=== PATIENT | female | born 2000 | race Caucasian/White ===

== ENCOUNTER 2025-07-29 12:53 | Emergency (ER) | payer OTHER, SELFPAY ==
--- NOTE | ~2025-07-29 | XR_ITS ---
CLINICAL HISTORY: pain s p bracing fall 3 views left elbow Comparison: None Findings: No fractures, subluxations or dislocations. Displaced anterior and posterior fat pads No periostitis Bone mineralization and soft tissues within normal limits. No radiopaque foreign body. Impression: 1. No acute fractures or dislocations. Joint effusion present This document has been electronically signed by: Jamil Spicer MD on 07/29/2025 13:59:04
--- NOTE | ~2025-07-29 | XR_ITS ---
CLINICAL HISTORY: fall 2 views left forearm Comparison: None Findings: No fracture or dislocation. Joint effusion of the elbow. No periostitis or bony destruction. Normal bone mineraliztion and soft tissues. No radiopaque foreign bodies. Impression: 1. No fractures. No dislocation. Joint effusion of the elbow. This document has been electronically signed by: Jamil Spicer MD on 07/29/2025 13:56:24
[2025-07-29 12:55] VITALS: BP 148/93; PULSE 69; RESP 16; TEMP 36.3; O2SAT 100; BMI 38.6
--- NOTE | 2025-07-29 12:55 | ED_ITS ---
HPI - Extremity Injury (Upper) General Chief Complaint: Extremity Problem Stated Complaint: arm inj Time Seen by Provider: 07/29/25 14:11 Source: patient, RN notes reviewed and old records reviewed Mode of arrival: ambulatory History of Present Illness ED Provider: Vivian Torres PA-C HPI narrative: 25-year-old female with no significant past medical history presenting to the ED complaining of left elbow pain radiating to left forearm s/p attempting to brace/catch herself when doing the splits last night. Reports associated paresthesias to left fingers. Denies injury to the area, head tremor/LOC Related Data Allergies Allergy/AdvReac Type Severity Reaction Status Date / Time No Known Allergies Allergy Verified 07/29/25 12:56 Review of Systems Review of Systems: Yes all other systems are reviewed and are negative Constitutional: Constitutional: Reports as per [facility] Past Medical History Attestation statement: The following information was validated with the patient. Source: old records reviewed Social History Social History Advance Directives: No Advance Directives Information Provided: Yes Physical Exam Vital Signs: Vital Signs: Last Vital Signs Temp 97.3 F 07/29/25 12:55 Pulse 69 07/29/25 12:55 Resp 16 07/29/25 12:55 BP 148/93 H 07/29/25 12:55 Pulse Ox 100 07/29/25 12:55 O2 Del Method Room Air 07/29/25 12:55 BMI result Body Mass Index 38.6 Const: General: cooperative, healthy appearing and no acute distress Orientation/consciousness: patient oriented x3 Limitations: no limitations HEENT: Head: Yes normal to inspection and Yes atraumatic Ears: hearing grossly normal bilaterally General nose exam: Normal external nose present Face and sinus: Yes normal facial exam Eyes: General: appearance normal, both eyes and all related structures EOM: EOMs intact bilaterally Neck: Neck: Yes normal visual inspection and Yes no meningeal signs Resp: Effort & Inspection: normal respiratory effort and no respiratory distress Cardio: Rate: regular rate Skin: Rashes: no rashes Wounds: no wounds Neuro: General: patient oriented x3, tone normal and no meningeal signs Cranial nerves: Yes CN's II-XII intact bilaterally Gait exam (Neuro): Normal gait present Extrem: Other: LUE without appreciable deformity. + mild tenderness to palpation to left elbow. FROM intact with some discomfort. forearm & wrist/hand nontender to palpation. No snuffbox ttp. NV intact. Pronation/supination intact Course Course Course Narrative: This is a Rapid Medical Exam performed in triage by Vivian Torres PA-C. Full HPI, ROS and PE to be performed by primary ED provider. 25 yo F presenting to the ED c/o LUE pain s/p doing the splits last night & trying to catch her fall. PE: Left upper extremity without appreciable deformity. Elbow mildly tender to palpation. Full range of motion intact. Wrist nontender. Neurovascularly intact Plan: XR XR elbow LT min 3V Impression: 1. No acute fractures or dislocations. Joint effusion present XR forearm LT 2V Impression: 1. No fractures. No dislocation. Joint effusion of the elbow. > small sail sign appreciated on x-ray on my interpretation. Will place patient in sling as precaution. Recommended close orthopedic follow-up. She verbalized understanding Results discussed with patient including worrisome signs and symptoms and strict return precautions, and when to return to the emergency department. They verbalized understanding and feel safe for discharge at this time. Medical Decision Making Medical Decision Making MDM Narrative: 25-year-old female with no significant past medical history presenting to the ED complaining of left elbow pain radiating to left forearm s/p attempting to brace/catch herself when doing the splits last night. On exam VSS, NAD, nontoxic appearing, PE as above. Concern for fx vs sprain. No evidence of septic joint/arthritis Plan: X-ray Please refer to course for remaining clinical decision making, interpretation of labs/imaging results, and discussions with consultants and/or family members. Differential Diagnosis Differential Diagnoses: The differential diagnosis associated with the presentation includes As above Independent Interpretation I performed an independent interpretation of an: Plain X-Ray (My interpretation: Small sail sign appreciated. No appreciable fracture visualized.) Radiology Impression Discussion of test interpretation with radiology: I have reviewed the radiologist's reading. External Record Review External record reviewed: Inpatient record, Office record, Outpatient record, Prior outpatient labs, Prior outpatient radiology, Primary care record and Outside ED record Tests considered The following testing was considered but not selected: As above Prescription Management I considered prescription management with: Pain Medication Social Determinants Patient?s care significantly limited by Social Determinants of Health including: Other Social Determinant of Health Discharge Plan Discharge Clinical Impression: Effusion of elbow joint, left Patient Disposition: Home, Self-Care Instructions: Swollen Joint (ED) Additional Instructions: Your x-rays show a joint effusion, no fracture, however there could possibly be a small fracture that is nondisplaced and missed on x-ray Please wear sling, you may take off to shower Please range of motion your shoulder for 10 minutes every hour so you do not develop frozen shoulder You need to follow up with the talent development specialist for this possible fracture If your pain persists or worsens becomes unbearable return to the ED Referrals: Terri James MD [Primary Care Provider, Family Practice] - 1 week Stand Alone Forms: Work/School Release Print Language: Upper Sorbian
--- OUTSIDE RECORDS SUMMARY | 2025-07-29 14:31 | XMS_ITS | Encounter Summary ---
Author Organization [facility] Address [address] [place] [address] Phone Care Team Providers Care General Road Foreman Name Role Phone Provider, Bobby DIOR Primary Care Provider [phone] Encounter Details Date Type Department Care Team (Late st Contact Info) Description 05/16/2012 Documentation [facility] [place] Family Medicine [address] [place] [address] Family Medicine, Physician [address] [place] [address] Social History Tobacco Use Types Packs/Day Years Used Date Smoking Tobacco: Never Assessed Comments Unknown Sex and Gender Information Value Date Recorded Sex Assigned at Female 06/05/2020 2:21 PM EDT Legal Sex Female 4:40 PM EDT Gender Identity Female 06/05/2020 2:21 PM EDT Sexual Orientation Straight 06/05/2020 2: 21 PM EDT documented as of this encounter Plan of Treatment Not on file documented as of this encounter Visit Diagnoses Not on filedocumented in this encounter Care Teams General Road Foreman Relationship Specialty Start Date End Date Provider, MD Bobby [address] [place] [address] PCP - General Pediatrics 02/25/22 01/17/23 documented as of this encounter
--- OUTSIDE RECORDS SUMMARY | 2025-07-29 14:31 | XMS_ITS | Encounter Summary ---
Author Organization [facility] Address [address] [place] [phone] Phone Care Team Providers Care Front Maker Name Role Phone Provider, Bobby DIOR Primary Care Provider [phone] Encounter Details Date Type Department Care Team (Late st Contact Info) Description 05/13/2017 Conversion Encounter [facility] [address] [place], [place] [id number] Social History Tobacco Use Types Packs/Day Years Used Date Smoking Tobacco: Never Comments:Never smoker Comments Unknown Sex and Gender Information Value [...] on filedocumented in this encounter Care Teams Front Maker Relationship Specialty Start Date End Date Provider, MD [address] [place] [phone] PCP - General Pediatrics 02/25/22 01/17/23 documented as of this encounter
--- OUTSIDE RECORDS SUMMARY | 2025-07-29 14:31 | XMS_ITS | Encounter Summary ---
Author Organization [facility] Address [address] [place] [phone] Phone Care Team Providers Care Security Sales Consultant Name Role Phone Provider, Bobby DIOR Primary Care Provider [phone] Encounter Details Date Type Department Care Team (Late st Contact Info) Description 01/24/2014 Documentation [facility] [place] Family Medicine [address] [place] [address] Family Medicine, Physician [address] [place] [address] Social History Tobacco Use Types [...] on filedocumented in this encounter Care Teams Security Sales Consultant Relationship Specialty Start Date End Date Provider, MD Bobby [address] [place] [address] PCP - General Pediatrics 02/25/22 01/17/23 documented as of this encounter
--- OUTSIDE RECORDS SUMMARY | 2025-07-29 14:31 | XMS_ITS | Encounter Summary ---
Author Organization [facility] Address [address] [place] [phone] Phone Care Team Providers Care Electrocardiographic Technician Name Role Phone Provider, Bobby DIOR Primary Care Provider [phone] Encounter Details Date Type Department Care Team (Late st Contact Info) Description 01/24/2014 Documentation [facility] [place] Family Medicine [address] [place] [address] Family Medicine, Physician [address] [place] [address] Social History Tobacco Use Types [...] on filedocumented in this encounter Care Teams Electrocardiographic Technician Relationship Specialty Start Date End Date Provider, MD [address] [place] [address] PCP - General Pediatrics 02/25/22 01/17/23 documented as of this encounter
--- OUTSIDE RECORDS SUMMARY | 2025-07-29 14:31 | XMS_ITS | Encounter Summary ---
Author Organization [facility] Address [address] [place] [address] Phone Care Team Providers Care Refractory Manager Name Role Phone Provider, Bobby DIOR Primary Care Provider [phone] Encounter Details Date Type Department Care Team (Late st Contact Info) Description 02/23/2014 Documentation [facility] [place] Family Medicine [address] [place] [address] Family Medicine, Physician [address] [place] [address] Social History Tobacco Use Types [...] on filedocumented in this encounter Care Teams Refractory Manager Relationship Specialty Start Date End Date Provider, MD [address] [place] [address] PCP - General Pediatrics 02/25/22 01/17/23 documented as of this encounter
--- OUTSIDE RECORDS SUMMARY | 2025-07-29 14:31 | XMS_ITS | Clinical Summary ---
Author Organization [facility] Address [address] [place] [address] Phone Care Team Providers Care Cordwood Cutter Name Role Phone Unavailable Primary Care Provider Unavailabl e Allergies No known active allergies Medications norelgestromin-eth inyl estradiol (ORTHO EVRA) 150-35 MCG/24HRIndication s:Encounter for initial prescription of transdermal patch hormonal contraceptive device Apply 1 patch each week for 3 weeks, then remove for 1 week. 3 patch 2 8 Active Active Problems Problem Noted Date Diagnosed Date Immunization not carried out because of patient refusal 06/05/2020 Overview (06/05/2020): Men B refused 05/2020 Flu vaccine not available today. Assessment & Plan (06/05/2020 2:49 PM EDT): Men B refused 05/2020 Flu vaccine not available today. BMI (body mass index), pedia tric 95-99% for age, obese child structured weight management/multidisciplinary intervention category 04/13/2018 Encounter for surveillance o f transdermal patch hormonal contraceptive device 04/13/2018 Overview (06/05/2020): Started 03/2018 on patch. Has been getting it refilled by clinic at school Assessment & Plan (06/05/2020 2:50 PM EDT): Doing well on the patch. No concerns Has been getting it refilled by clinic at school Wears glasses 04/13/2018 Resolved Problems Problem Noted Date Diagnosed Date Resolved Date Mood disorder 04/13/2018 06/05/2020 Overview (04/13/2018): Mild mood issues. Boyfriend just broke up with her, looking for a job. Assessment & Plan (04/13/2018 10:14 AM EDT): Recently feeling a bit down and mildly anxious. Recommend starting therapy and follow up with me at contraception follow up. Sooner for any worsening. Immunizations Immunization Administration Dates Next Due DTaP 5 07/28/2004, 2,2000, 001,2000 HPV Vaccine 9 Valent 04/13/2018 HPV, Quadrivalent 02/22/2014,01/23/2014 Hep A, ped/adol 04/13/2018,01/23/2014 Hep B, ped/adol 2000,2000,2000 Hib (PRP-T) 10/05/2001, 1,2000, 000 IPV 07/28/2004, 2,2000, 000 MMR 07/28/2004,08/03/2001 Meningococcal Conj (Menactra) MCV4P 04/13/2018,0 05/13/2012 Pneumococcal Conjugate 2000,2000, Tdap 05/13/2012 Varicella 01/19/2008,08/03/2001 Family History Relation Name Status Comments Father Alive Father: unknown history Mother Rhonda Alive Mother: Obesity Social History Tobacco Use Types Packs/Day Years Used Date Smoking Tobacco: Never Smokeless Tobacco: Never Comments:Never smoker Alcohol Use Standard Drinks/Week Comments No 0 (1 standard drink = 0.6 oz pur e alcohol) Hunger/Food Answer Date Recorded In the last 12 months, did y ou or your family ever eat less than you felt you should because there wasn't enough money for food? No 06/05/2020 Stable Housing Answer Date Recorded Are you worried that in the next 2 months you may not have stable housing? No 06/05/2020 Transportation Concerns Answer Date Rec orded In the last 12 months, have you or your family ever had to go without healthcare because you didn't have a way to get there? No 06/05/2020 Hazards in Home Answer Date Recorded Think about the place you li ve. Do you have problems with any of the following? Pests (mice or roaches), mold, no/not working smoke detectors, water leaks, no window guards. No 2019 Financing Utilities Answer Date Recorde d In the last 12 months, has t he electric, gas, oil, or water company threatened to shut off your services in your home? No 06/05/2020 Safety at Home Answer Date Recorded Are you or your family worried about feeling saf e in your home? No 06/05/2020 Outside Support Answer Date Recorded Do you feel that you need mo re support from other people or programs to help you care for yourself or your family? No 06/05/2020 Understanding Health Concerns Answer Da te Recorded Do you need help understandi ng your or your child's healthcare needs (diagnosis, medications, plan, etc.)? No 06/05/2020 Financing Health Concerns Answer Date R ecorded In the last 12 months, was t here a time when your child needed to see a doctor or get medications or supplies but could not because of cost? No 06/05/2020 Missing School or Work Answer Date Alexis rded Did you or your child miss s chool or work because of a health problem that could have been avoided? No 06/05/2020 Comments Unknown Sex and Gender Information Value Date Recorded Sex Assigned at Female 06/05/2020 2:21 PM EDT Legal Sex Female 4:40 PM EDT Gender Identity Female 06/05/2020 2:21 PM EDT Sexual Orientation Straight 06/05/2020 2: 21 PM EDT Last Filed Vital Signs Vital Sign Reading Time Taken Comments Blood Pressure 126/72 06/05/2020 2:06 PM EDT Pulse 79 06/05/2020 2:06 PM EDT Temperature 37 C (98.6 F) 06/05/2020 2:06 PM EDT Respiratory Rate - - Oxygen Saturation - - Inhaled Oxygen Concentration - - Weight 89.4 kg (197 lb) 06/05/2020 2:06 PM EDT Height 172.1 cm (5' 7.75 ) 06/05/2020 2:06 PM ED T Body Mass Index 30.18 06/05/2020 2:06 PM EDT Plan of Treatment Health Maintenance Due Date Last Done Comments DTaP,Tdap,and Td Vaccines (7 - Td or Tdap) 05/13/2022 05/13/2012, 07/28/2004, 12/21/2001, Additional history exists Influenza Vaccines (#1) 2025 COVID-19 Vaccine ( season) 2025 09/18/2021, 01/18/2021, 12/25/2020 Hepatitis B Vaccines Completed 2000, 2000, 2000 Pneumococcal Vaccine Aged Out 2000, 2000, 2000 No longer eligible based on patient's age to complete this topic HIB Vaccines Completed 10/05/2001, 12/2000, 2000, Additional history exists IPV Vaccines Completed 07/28/2004, 05/2002, 2000, Additional history exists MMR Vaccines Completed 07/28/2004, 08/03/2001 Varicella Vaccines Completed 01/19/2008, 08/03/2001 HPV Vaccines Completed 04/13/2018, 01/26, 01/23/2014 Hepatitis A Vaccines Completed 04/13/2018, 01/24/20 14 Meningococcal Vaccine Completed 04/13/2018, 012 Men B Vaccine Aged Out No longer elig ible based on patient's age to complete this topic Procedures * Due to [place] law, this organization might not be sharing sensitive test results. Procedure Name Priority Date/Time Associated Diagnosis Comments CHLAMYDIA AND GONORRHEA, AMPLIFIED Routine 06/05/2020 2:32 PM EDT Special screening for bacterial and spirochetal disease from Last 3 Months or Most Recently Relevant to Health Maintenance Results * Due to [place] law, this organization might not be sharing sensitive test results. * Chlamydia and Gonorrhoea, Amplified (06/05/2020 2:32 PM EDT) Chlamydia Trachomatis, DNA Probe NOT DETECTED (NEG) [facility] Comment:Reference range: NOT DETECTED URINE GC AMP PROBE NOT DETECTED (NEG) [facility] Comment: Reference range: NOT DETECTED (NOTE) The analytical performance characteristics of this assay, when used to test SurePath(TM) specimens have been determined by [employer]. The modifications have not been cleared or approved by the FDA. This assay has been validated pursuant to the CLIA regulations and is used for clinical purposes. = For additional information, please refer to https://education.INMAN.KidBook/faq/YUP262 (This link is being provided for information/ educational purposes only.) = Test Performed by: [facility], [address] [place] [address]. [id number]. Online Communications Specialist: Isac Carlson MD. Testing performed or reported by [facility], a Service of [facility], [address] [place] [id number] Joseph Rand MD, Scientific Programmer Urine 06/05/2020 2:32 PM EDT 06/06/2020 1:25 AM EDT Candy Riley MD LAB MICROBIOLOGY - GENERAL O RDERABLES Final Result [facility] from Last 3 Months or Most Recently Relevant to Health Maintenance
--- OUTSIDE RECORDS SUMMARY | 2025-07-29 14:31 | XMS_ITS | Encounter Summary ---
Author Organization [facility] Address [address] [place] [phone] Phone Care Team Providers Care Primer Waterproofing Machine Operator Name Role Phone Provider, Bobby DIOR Primary Care Provider [phone] Encounter Details Date Type Department Care Team (Late st Contact Info) Description 05/17/2012 Documentation [facility] [place] [address] [place] [address] Family Medicine, Physician [address] [place] [address] Social History Tobacco Use Types [...] on filedocumented in this encounter Care Teams Primer Waterproofing Machine Operator Relationship Specialty Start Date End Date Provider, MD Bobby [address] [place] [address] PCP - General Pediatrics 02/25/22 01/17/23 documented as of this encounter
--- OUTSIDE RECORDS SUMMARY | 2025-07-29 14:31 | XMS_ITS | Clinical Summary ---
Author Organization [facility] [address] [place] [address] Address [address], [place] Phone Care Team Providers Care Vocational Teacher Name Role Phone Terri James MD Primary Care Pr ovider Allergies No known active allergies Medications multivit-minerals/ folic acid (WOMEN'S MULTIVITAMIN GUMMIES ORAL) Take by mouth. Active Active Problems Problem Noted Date Diagnosed Date Migraine without aura and wi thout status migrainosus, not intractable 05/14/2025 Assessment & Plan (05/14/2025 3:48 PM EDT): We discussed the option for topiramate for headache prophylaxis including the side effects. She is currently not ready to start medication and will let me know if she decides to do so in the future. Advised she can use [id number] Excedrin as needed or continue with the aspirin as needed Mild episode of recurrent ma guillaume depressive disorder (CMS/HCC V24) 05/14/2025 Assessment & Plan (05/14/2025 3:48 PM EDT): No SI. She will continue with biweekly therapy. Does not think she needs medications for now Easy bruising 05/14/2025 Assessment & Plan (05/14/2025 3:48 PM EDT): Will check CBC and VWF activity Orders: Von Willebrand factor activity; Future Obesity (BMI 35.0-39.9 without comorbidity) 04/27 Assessment & Plan (05/14/2025 3:48 PM EDT): Lifestyle counseling provided. She is currently not interested in weight loss medications. She is interested in nutrition evaluation and is referred. Will check labs Orders: Ambulatory referral to Nutrition Services; Future Lipid panel with reflex to direct LDL; Future CBC and differential; Future Comprehensive metabolic panel; Future Thyroid stimulating hormone with reflex to free t4 and free t3; Future Hemoglobin A1c; Future Encounters Date Type Department Care Team Description 05/14/2025 3:00 PM EDT Office Visit Adult Medicine [address] [phone] Terri James MD Annual physical exam (Primary Dx); Obesity (BMI 35.0-39.9 without comorbidity); Cervical cancer screening; Easy bruising; Migraine without aura and without status migrainosus, not intractable; Mild episode of recurrent major depressive disorder (CMS/HCC V24) from Last 3 Months Immunizations Immunization Administration Dates Next Due Moderna SARS-CoV-2 COVID-19, mRNA, LNP-S, preservative free 09/18/2021 Pfizer SARS-CoV-2 COVID-19, mRNA, LNP-S, preservative free 01/18/2021,12/25/2020 Surgical History Surgery Date Site/Laterality Comments NO PAST SURGERIES PROCEDURE: DENIES PREVIOUS SURGERY Family History Medical History Relation Name Comments Diabetes Maternal Grandfather Lawrence Thyroid disease Maternal Grandmother No Known Problems Mother Breast cancer Neg Hx Colon cancer Neg Hx Ovarian cancer Neg Hx Relation Name Status Comments Father Unknown Maternal Grandfather Lawrence Alive Maternal Grandmother Alive Mother Alive Paternal Grandfather Unknown Paternal Grandmother Unknown Social History Tobacco Use Types Packs/Day Years Used Date Smoking Tobacco: Never Smokeless Tobacco: Never Tobacco Cessation:Counseling Given: Not Answered Alcohol Use Standard Drinks/Week Comments Yes 0 (1 standard drink = 0.6 oz pur e alcohol) 6 Housing Instability Answer Date Recorde d Are you worried that in the next 2 months you may not have stable housing? No 05/08/2025 Food Access & Nutrition Answer Date Rec orded Do you have access to a vari ety of food including fruits and vegetables? Yes 05/08/2025 Access to Healthcare Answer Date Record ed Within the last 3 months, ho w many times did you visit the emergency department for your medical care? 0 05/08/2025 Health Literacy Answer Date Recorded How often do you need to hav e someone help you when you read instructions, pamphlets, or other written material from your doctor or pharmacy? Never 05/08/2025 Caregiver: How often do you need to have someone help you when you read instructions, pamphlets, or other written material from your doctor or pharmacy? Not on file 05/08/2025 Financial Risk Answer Date Recorded How hard is it for you to pa y for the very basics like food, housing, medical care, and air conditioning / heating? Not very hard 05/08/2025 Transportation Answer Date Recorded Has the lack of transportati on kept you from meetings, work, or from getting things needed for daily living? No Has the lack of transportati on kept you from medical appointments or from getting medications? No 05/08/2025 Social Isolation Answer Date Recorded How often do you feel lonely or isolated from those around you? Sometimes 05/08/2025 Food Risk Answer Date Recorded Within the past 12 months we worried whether our food would run out before we got money to buy more. Never true 05/08/2025 Within the past 12 months th e food we bought just didn't last and we didn't have money to get more. Never true 05/08/2025 Dependent Care Answer Date Recorded Do you need help finding or paying for care for your loved ones. For example, early childhood associate or elderly care for an older adult? No 05/08/2025 Education Answer Date Recorded Do you think completing more education or training, like finishing a GED, going to college, or learning a trade, would be helpful for you? No 05/08/2025 Employment and Income Answer Date Recor ded During the last four weeks, have you been actively looking for work? No 05/08/2025 Living Situation Answer Date Recorded What is your living situation? Unrecognized valu e 05/08/2025 Comments Unknown Sex and Gender Information Value Date Recorded Sex Assigned at Not on file Legal Sex Female 11:40 AM EDT Gender Identity Not on file Sexual Orientation Not on file Obstetrics History Last Filed Vital Signs Vital Sign Reading Time Taken Comments Blood Pressure 113/77 05/14/2025 2:48 PM EDT Pulse 76 05/14/2025 2:48 PM EDT Temperature 36.8 C (98.2 F) 05/14/2025 2:48 PM EDT Respiratory Rate 18 05/14/2025 2:48 PM EDT Oxygen Saturation - - Inhaled Oxygen Concentration - - Weight 111 kg (245 lb) 05/14/2025 2:48 PM EDT Height 172.7 cm (5' 8 ) 05/14/2025 2:48 PM EDT Body Mass Index 37.25 05/14/2025 2:48 PM EDT Plan of Treatment Upcoming Encounters Date Type Department Care Team (Late st Contact Info) Description 05/15/2026 8:00 AM EDT Office Visit Adult Medicine [address] [phone] Terri James MD [address] [place] [phone] Health Maintenance Due Date Last Done Comments Cervical Cancer Screening: Pap Smear 2021 Influenza Vaccine (#1) 2025 Social Influencers of Health Screening 05/08/2026 05/08/2025 Cholesterol Screening (Lipid Panel) 05/17/2030 05/17/2025, 05/12/2024, 05/12/2024 RSV Immunization Adult Patients (1 - 1-dose 75+ series) 2075 Hepatitis B Vaccines Completed 2000, 2000, 2000 Pneumococcal Vaccine: Pediatrics (0 to 5 Years) and At-Risk Patients (6 to 49 Years) Aged Out 2000, 2000, 2000 No longer eligible based on patient's age to complete this topic HIB Vaccines Completed 10/05/2001, 12/2000, 2000, Additional history exists IPV Vaccines Completed 07/28/2004, 05/2002, 2000, Additional history exists MMR Vaccines Completed 07/28/2004, 08/03/2001 Varicella Vaccines Completed 01/19/2008, 08/03/2001 DTaP,Tdap,and Td Vaccines Discontinued 2011, 07/28/2004, 12/21/2001, Additional history exists HPV Vaccines Completed 04/13/2018, 01/26, 01/23/2014 Hepatitis A Vaccines Completed 04/13/2018, 01/24/20 14 Meningococcal ACWY Vaccine Completed 04/13/2018, COVID-19 Vaccine Discontinued 09/18/2021, , 12/25/2020 Gonorrhea/Chlamydia Screening Discontinued 05/12/2024 HIV Screening Completed 05/12/2024, 05/12/2024 Hepatitis C Screening Completed 05/12/2024 Depression Screening Completed 05/08/2025 Meningococcal B Vaccine Aged Out No l onger eligible based on patient's age to complete this topic RSV Immunization Patients Under 20 months Aged Out No longer eligible based on patient's age to complete this topic Procedures Procedure Name Priority Date/Time Associated Diagnosis Comments HEMOGLOBIN ELECTROPHORESIS Routine 06/01/2025 3:30 PM EDT Elevated red blood cell count IRON AND TIBC Routine 06/01/2025 3:30 PM EDT Elevated red blood cell count FERRITIN Routine 06/01/2025 3:30 PM EDT Elevated red blood cell count CBC WITH AUTO DIFFERENTIAL Routine 05/17/2025 9:54 AM EDT Obesity (BMI 35.0-39.9 without comorbidity) LIPID PANEL WITH REFLEX TO DIRECT LDL Routine 05/17/2025 9:54 AM EDT Obesity (BMI 35.0-39.9 without comorbidity) CBC AND DIFFERENTIAL Routine 05/17/2025 9:54 AM EDT Obesity (BMI 35.0-39.9 without comorbidity) COMPREHENSIVE METABOLIC PANEL Routine 05/17/2025 9:54 AM EDT Obesity (BMI 35.0-39.9 without comorbidity) THYROID STIMULATING HORMONE WITH REFLEX TO FREE T4 AND FREE T3 Routine 05/17/2025 9:54 AM EDT Obesity (BMI 35.0-39.9 without comorbidity) HEMOGLOBIN A1C Routine 05/17/2025 9:54 AM EDT Obesity (BMI 35.0-39.9 without comorbidity) VON WILLEBRAND FACTOR ACTIVITY Routine 05/17/2025 9:54 AM EDT Easy bruising HM HEPATITIS C SCREENING Routine 05/12/2024 HM HIV SCREENING Routine 05/12/2024 HM GONORRHEA/CHLAMYDIA SCRREENING Routine 05/12/2024 from Last 3 Months or Most Recently Relevant to Health Maintenance Results * Hemoglobin electrophoresis (06/01/2025 3:30 PM EDT) Hemoglobin A1 97.6 96.5 - 97.8 % 06/07/2025 2:13 PM EDT [facility] Hemoglobin A2 2.4 2.2 - 3.2 % 06/07/2025 2:13 PM EDT [facility] Hemoglobin F 0.0 <2.0 % 06/07/2025 2:13 PM EDT [facility] Hemoglobin S 0.0 0.0 % 06/07/2025 2:13 PM EDT [facility] Hemoglobin C 0.0 0.0 % 06/07/2025 2:13 PM EDT [facility] Interpretation See Below 06/07/2025 2:13 PM EDT [facility] Comment: No abnormal hemoglobin variants seen on hemoglobin electrophoresis. Test performed at [facility], [facility] [place] [address] [place] [address] Rosemarie Webster MD, PhD - Service Delivery Director Blood Venous blood specimen / Unknown Venipuncture / Unknown 06/01/2025 3:30 PM EDT 06/01/2025 3:30 PM EDT us Terri James MD LAB BLOOD ORDERA BLES Final Result [facility] [address] [place] [address] * (ABNORMAL) Iron and TIBC (06/01/2025 3:30 PM EDT) Iron 56 40 - 150 mcg/dL LAB CHEMISTRY METHOD 06/01/2025 9:24 PM EDT [facility] TIBC 427 250 - 450 mcg/dL LAB CHEMISTRY METHOD 06/01/2025 9:24 PM EDT [facility] Iron Saturation 13(L) 15 - 50 % LAB CHEMISTRY METHOD 06/01/2025 9:24 PM EDT [facility] Blood Venous blood specimen / Unknown Venipuncture / Unknown 06/01/2025 3:30 PM EDT 06/01/2025 3:30 PM EDT Terri James MD LAB BLOOD ORDERA BLES Final Result Performing Organization Address [facility]/ZIP Co de Phone Number [facility] [address] [place] [address], [place] [phone] * Ferritin (06/01/2025 3:30 PM EDT) Ferritin 20 8 - 252 ng/mL LAB CHEMISTRY METHOD 06/01/2025 9:25 PM EDT [facility] Blood Venous blood specimen / Unknown Venipuncture / Unknown 06/01/2025 3:30 PM EDT 06/01/2025 3:30 PM EDT Terri James MD LAB BLOOD ORDERA BLES Final Result [facility] [address] [place] [address], [place] [phone] * Thyroid stimulating hormone with reflex to free t4 and free t3 (05/17/2025 9:54 AM EDT) [facility] TSH 1.57 0.40 - 4.00 mcIU/mL LAB CHEMISTRY METHOD 05/17/2025 2:02 PM EDT [facility] Blood Venous blood specimen / Unknown Venipuncture / Unknown 05/17/2025 9:54 AM EDT 05/17/2025 9:54 AM EDT Terri James MD LAB BLOOD ORDERA BLES Final Result [facility] [address] [place] [address], [place] [phone] * Lipid panel with reflex to direct LDL (05/17/2025 9:54 AM EDT) [facility] Cholesterol 143 0 - 200 mg/dL LAB CHEMISTRY METHOD 05/17/2025 1:19 PM EDT [facility] Triglycerides 47 0 - 150 mg/dL LAB CHEMISTRY METHOD 05/17/2025 1:19 PM [facility] HDL 54 >=40 mg/dL LAB CHEMISTRY METHOD 05/17/2025 1:19 PM EDT [facility] LDL Calculated 80 0 - 100 mg/dL LAB CHEMISTRY METHOD 05/17/2025 1:19 PM EDT [facility] Comment:Estimated LDL Calcul ated using equation: Total cholesterol - HDL cholesterol - (Triglycerides/5) VLDL Cholesterol Ld 9.4 mg/dL LAB CHEMISTRY METHOD 05/17/2025 1:19 PM T [facility] Non HDL Chol. (LDL+VLDL) 89 <145 mg/dL LAB CHEMISTRY METHOD 05/17/2025 1:19 PM EDT [facility] Chol/HDL Ratio 2.6 0.0 - 4.4 LAB CHEMISTRY METHOD 05/17/2025 1:19 PM EDT [facility] Blood Venous blood specimen / Unknown Venipuncture / Unknown 05/17/2025 9:54 AM EDT 05/17/2025 9:54 AM EDT Terri James MD LAB BLOOD ORDERA BLES Final Result [facility] [address] [place] [address], * (ABNORMAL) CBC auto differential (05/17/2025 9:54 AM EDT) WBC 7.1 4.8 - 10.8 K/mcL LAB HEMETOLOGY METHOD 05/17/2025 12:24 PM EDT [facility] RBC 5.10(H) 3.80 - 4.80 M/mcL LAB HEMETOLOGY METHOD 05/17/2025 12:24 PM EDT [facility] Hemoglobin 13.3 11.5 - 16.0 g/dL LAB HEMETOLOGY METHOD 05/17/2025 12:24 PM EDT [facility] Hematocrit 42.1 35.0 - 47.0 % LAB HEMETOLOGY METHOD 05/17/2025 12:24 PM EDT [facility] MCV 82.4 79.0 - 98.0 FL LAB HEMETOLOGY METHOD 05/17/2025 12:24 PM T [facility] MCH 26.0(L) 27.0 - 32.0 pcg LAB HEMETOLOGY METHOD 05/17/2025 12:24 PM [facility] MCHC 31.6(L) 32.0 - 37.0 g/dL LAB HEMETOLOGY METHOD 05/17/2025 12:24 PM EDT [facility] RDW 14.1 11.0 - 15.0 % LAB HEMETOLOGY METHOD 05/17/2025 12:24 PM [facility] Platelets 194 130 - 400 K/mcL LAB HEMETOLOGY METHOD 05/17/2025 12:24 PM [facility] MPV 13.3(H) 7.0 - 11.0 FL LAB HEMETOLOGY METHOD 05/17/2025 12:24 PM [facility] NRBC 0.0 <1.0 % LAB HEMETOLOGY METHOD 05/17/2025 12:24 PM [facility] NRBC Absolute 0.00 <0.10 K/mcL LAB HEMETOLOGY METHOD 05/17/2025 12:24 PM [facility] Neutrophils Relative 75.2 % LAB HEMETOLOGY METHOD 05/17/2025 12:24 PM [facility] Lymphocytes Relative 16.9 % LAB HEMETOLOGY METHOD 05/17/2025 12:24 PM [facility] Monocytes Relative 5.9 % LAB HEMETOLOGY METHOD 05/17/2025 12:24 PM [facility] Eosinophils Relative 1.3 % LAB HEMETOLOGY METHOD 05/17/2025 12:24 PM [facility] Basophils Relative 0.4 % LAB HEMETOLOGY METHOD 05/17/2025 12:24 PM [facility] Immature Granulocytes Relative 0.3 % LAB HEMETOLOGY METHOD 05/17/2025 12:24 PM [facility] Neutrophils Absolute 5.34 1.50 - 7.00 K/mcL LAB HEMETOLOGY METHOD 05/17/2025 12:24 PM [facility] Lymphocytes Absolute 1.20 1.00 - 5.00 K/mcL LAB HEMETOLOGY METHOD 05/17/2025 12:24 PM [facility] Monocytes Absolute 0.42 0.20 - 1.00 K/mcL LAB HEMETOLOGY METHOD 05/17/2025 12:24 PM EDT [facility] Eosinophils Absolute 0.09 0.00 - 0.50 K/mcL LAB HEMETOLOGY METHOD 05/17/2025 12:24 PM EDT [facility] Basophils Absolute 0.03 0.00 - 0.20 K/[facility] LAB HEMETOLOGY METHOD 05/17/2025 12:24 PM EDT [facility] Immature Granulocytes Absolute 0.02 0.00 - 0.03 K/mcL LAB HEMETOLOGY METHOD 05/17/2025 12:24 PM EDT [facility] Blood Venous blood specimen / Unknown Venipuncture / Unknown 05/17/2025 9:54 AM EDT 05/17/2025 9:54 AM EDT Terri James MD LAB BLOOD ORDERA BLES Final Result [facility] [address] [place] [address], [place] [phone] * Von Willebrand factor activity (05/17/2025 9:54 AM EDT) von Willebrand Factor Activity Percent 54 51 - 215 % 05/21/2025 4:53 PM EDT [facility] Comment: REFERENCE INTERVAL: von Willebrand Factor, Activity (RCF) Access complete set of age- and/or gender-specific reference intervals for this test in the [facility] Test Directory ([employer]). Performed By: [facility] [address] [place] [id number] Liquid Chlorine Operator: Armond Davies MD, PhD CLIA Number: [id number] Blood Venous blood specimen / Unknown Venipuncture / Unknown 05/17/2025 9:54 AM EDT 05/17/2025 9:54 AM EDT Terri James MD LAB BLOOD ORDERA BLES Final Result [facility] [address] [place] [address] * Hemoglobin A1c (05/17/2025 9:54 AM EDT) Hemoglobin A1C 5.3 <6.5 % LAB CHEMISTRY METHOD 05/17/2025 2:23 PM EDT [facility] Mean Bld Glu Estim. 105 mg/dL LAB CHEMISTRY METHOD 05/17/2025 2:23 PM EDT [facility] Blood Venous blood specimen / Unknown Venipuncture / Unknown 05/17/2025 9:54 AM EDT 05/17/2025 9:54 AM EDT Terri James MD LAB BLOOD ORDERA BLES Final Result [facility] [address] [place] [address], [place] [phone] * Comprehensive metabolic panel (05/17/2025 9:54 AM EDT) Pathologist [facility] Sodium 140 133 - 145 mmol/L LAB CHEMISTRY METHOD 05/17/2025 1:16 PM EDT [facility] Potassium 4.5 3.5 - 5.5 mmol/L LAB CHEMISTRY METHOD 05/17/2025 1:16 PM EDT [facility] Chloride 107 96 - 110 mmol/L LAB CHEMISTRY METHOD 05/17/2025 1:16 PM EDT [facility] CO2 27 21 - 32 mmol/L LAB CHEMISTRY METHOD 05/17/2025 1:16 PM EDT [facility] Anion Gap 6 3 - 11 LAB CHEMISTRY METHOD 05/17/2025 1:16 PM EDT [facility] Glucose 87 70 - 100 mg/dL LAB CHEMISTRY METHOD 05/17/2025 1:16 PM [facility] BUN 12 5 - 25 mg/dL LAB CHEMISTRY METHOD 05/17/2025 1:16 PM [facility] Creatinine 0.94 0.50 - 1.10 mg/dL LAB CHEMISTRY METHOD 05/17/2025 1:16 PM [facility] eGFR 87 >=60 mL/min/1. 73m2 LAB CHEMISTRY METHOD 05/17/2025 1:16 PM [facility] Comment:Calculation based on the Chronic Kidney Disease Epidemiology Collaboration (CKD-EPI) equation refit without adjustment for race. BUN/Creatinine Ratio 12.8 LAB CHEMISTRY METHOD 05/17/2025 1:16 PM [facility] Calcium 9.0 8.5 - 10.5 mg/dL LAB CHEMISTRY METHOD 05/17/2025 1:16 PM [facility] AST (SGOT) 16 10 - 42 unit/L LAB CHEMISTRY METHOD 05/17/2025 1:16 PM [facility] ALT (SGPT) 13 10 - 60 unit/L LAB CHEMISTRY METHOD 05/17/2025 1:16 PM [facility] Alkaline Phosphatase 71 42 - 121 unit/L LAB CHEMISTRY METHOD 05/17/2025 1:16 PM [facility] Total Protein 7.3 6.0 - 8.0 g/dL LAB CHEMISTRY METHOD 05/17/2025 1:16 PM [facility] Albumin 3.9 3.2 - 5.0 g/dL LAB CHEMISTRY METHOD 05/17/2025 1:16 PM [facility] Total Bilirubin 0.6 0.0 - 1.4 mg/dL LAB CHEMISTRY METHOD 05/17/2025 1:16 PM [facility] Blood Venous blood specimen / Unknown Venipuncture / Unknown 05/17/2025 9:54 AM EDT 05/17/2025 9:54 AM EDT Terri James MD LAB BLOOD ORDERA BLES Final Result [facility] [address] [place] [address], * HIV Screening (05/12/2024) HIV Screening abstracted Historical Provider HEALTH MAINTENANCE Final Result * Hepatitis C Screening (05/12/2024) Hepatitis C Screening abstracted Historical Provider HEALTH MAINTENANCE Final Result * Gonorrhea/Chlamydia Screening (05/12/2024) Gonorrhea/Chla mydia Screening abstracted Historical Provider HEALTH MAINTENANCE Final Result from Last 3 Months or Most Recently Relevant to Health Maintenance [place] [address] [place] [address] Care Teams Vocational Teacher Relationship Specialty Start Date End Date Terri James MD [address] [place] [phone] PCP - General 03/28/24
--- OUTSIDE RECORDS SUMMARY | 2025-07-29 14:31 | XMS_ITS | Encounter Summary ---
Author Organization [facility] Address [address] [place] [phone] Phone Care Team Providers Care Drum Builder Name Role Phone Provider, Bobby DIOR Primary Care Provider [phone] Encounter Details Date Type Department Care Team (Late st Contact Info) Description 02/23/2014 Documentation [facility] [place] [facility] [address] [place] [address] Family Medicine, Physician [address] [place] [address] Social History Tobacco Use Types [...] on filedocumented in this encounter Care Teams Drum Builder Relationship Specialty Start Date End Date Provider, MD Bobby [address] [place] [address] PCP - General Pediatrics 02/25/22 01/17/23 documented as of this encounter
--- OUTSIDE RECORDS SUMMARY | 2025-07-29 14:31 | XMS_ITS | Encounter Summary ---
Author Organization [facility] Address [address] [place] [address] Phone Care Team Providers Care Business Integration Analyst Name Role Phone Provider, Bobby DIOR Primary Care Provider [phone] Encounter Details Date Type Department Care Team (Late st Contact Info) Description 05/17/2012 Documentation [facility] [facility] [address] [place] [address] Family Medicine, Physician [address] [place] [address] Social History Tobacco Use Types [...] on filedocumented in this encounter Care Teams Business Integration Analyst Relationship Specialty Start Date End Date Provider, MD Bobby [address] [place] [address] PCP - General Pediatrics 02/25/22 01/17/23 documented as of this encounter
[2025-07-29 14:56] VITALS: BP 148/93; PULSE 69; RESP 16; TEMP 36.3; O2SAT 100
== END 2025-07-29 14:57 | disposition home or self-care (01) ==
PROVIDERS: Emergency Provider Emergency Medicine; PCP Family Medicine
DX: M25.422 Effusion, left elbow (principal); M79.632 Pain in left forearm
CPT/HCPCS: 73080; 73090; 99282; 99283

== ENCOUNTER → 2025-07-29 13:00 | Outpatient (BNV) | payer OTHER, SELFPAY | PROVIDERS: Visit Provider Radiology Diagnostic Radiology | DX: M25.422 Effusion, left elbow (principal); W18.39XA Other fall on same level, initial encounter | CPT/HCPCS: 73080; 73090 ==